=== PATIENT | male | born 1975 | race Caucasian/White ===

== ENCOUNTER 2017-03-25 08:21 | Emergency (ER) | payer SELFPAY ==
[2017-03-25 08:35] VITALS: BP 140/100
--- NOTE | 2017-03-25 09:01 | UC ---
Veena Dahl Thomas, scribed for Stella Enriquez MD on 03/25/17 at 0848 . General HPI - HPI Summary HPI Summary: The pt is a 41 y/o M presenting to [facility] requesting a refill of Atenolol 100mg daily. He recently moved from [place] in December. Pt states his PCP gave him, a 6 -month prescription. He says that [facility] will only allow one refill from another state, and he has not found a PCP yet. pt did fill the Rx on January ( bottle with pt) Pt without any complaints or concerns. He brings his bloodwork and PCP documentation from [facility] to the examination room.. He has taken half his dosage for the las 2-3 days. He states that he is on Atenolol for heart conditions that cause blackouts and flutters. In the past, he was prescribed Atenolol 50mg initially, but his dose has since increased. He recently became employed with [employer] 3 weeks ago. He is currently attempting to find insurance. His medication is $4 a bottle. He denies any current symptoms. He also takes a daily multivitamin. Reviewed of documentation from PCP. Pt had Rx 100mg Atenolol Jul,, December all documented. PMHx: syncope, HTN, COPD, histoplasmosis. PSHx: implanted loop recorder (still implanted), cholecystectomy, deviated septum. SHx: smoker (1/2 PPD, previously 2 PPD), weekend drinker, no illicit drugs. FHx: COPD. Patients medication reviewed this visit. - History of Current Complaint Stated Complaint: MED REFILL Time Seen by Provider: 03/25/17 08:24 Hx Obtained From: Patient Onset/Duration: Lasting Days - for the last ten days, he has been taking half of his prescribed dose, Still Present Timing: Constant Pain Intensity: 0 Aggravating: None Alleviating: None Associated Signs & Symptoms: Positive: Other - POS: med refill; NEG: any symptoms - Allergy/Home Medications Allergies/Adverse Reactions: Allergies Allergy/AdvReac Type Severity Reaction Status Date / Time Codeine Allergy Unknown Verified 03/25/17 08:37 Reaction Details Home Medications: Home Medications Atenolol [Tenormin 100 MG] 1 tab PO DAILY 03/25/17 [History Confirmed 03/25/17] PMH/Surg Hx/FS Hx/Imm Hx Previously Healthy: No Cardiovascular History: Hypertension, Other Other Cardiovascular History: "congenital heart condition", syncope Respiratory History: COPD - Surgical History Surgical History: Yes Surgery Procedure, Year, and Place: gallbladder, event monitor , hemorrhoid , deviated septum, lung biopsy, loop recorder - Family History Known Family History: Positive: Other - POS: COPD - Social History Occupation: Employed Part-time - [employer] Lives: With Family Alcohol Use: Weekly Substance Use Type: None Smoking Status (MU): Heavy Every Day Tobacco Smoker Type: Cigarettes Amount Used/How Often: 1/2 ppd Have You Smoked in the Last Year: Yes Review of Systems Constitutional: Other - POS: in need of med refill Skin: Negative Eyes: Negative ENT: Negative Respiratory: Negative Cardiovascular: Negative Gastrointestinal: Negative Genitourinary: Negative Motor: Negative Neurovascular: Negative Musculoskeletal: Negative Neurological: Negative Psychological: Negative All Other Systems Reviewed And Are Negative: Yes Physical Exam Triage Information Reviewed: Yes Appearance: Well-Appearing, No Pain Distress, Well-Nourished Vital Signs: Initial Vital Signs Temp 95.9 F 03/25/17 08:26 Pulse 76 03/25/17 08:26 Resp 18 03/25/17 08:26 BP 140/100 03/25/17 08:26 Pulse Ox 97 03/25/17 08:26 Vital Signs Reviewed: Yes Eye Exam: Normal ENT Exam: Normal Dental Exam: Normal Neck exam: Normal Neck: Positive: Supple, Nontender, No Lymphadenopathy Respiratory Exam: Normal Respiratory: Positive: Chest non-tender, Lungs clear, Normal breath sounds Cardiovascular Exam: Normal Cardiovascular: Positive: RRR, No Murmur, Pulses Normal Abdominal Exam: Normal Abdomen Description: Positive: Nontender, No Organomegaly, Soft Bowel Sounds: Positive: Present Musculoskeletal Exam: Normal Musculoskeletal: Positive: Strength Intact, ROM Intact Neurological Exam: Normal Neurological: Positive: Alert, Muscle Tone Normal Psychological Exam: Normal Psychological: Positive: Normal Response To Family Skin Exam: Normal Course/Dx - Course Course Of Treatment: The patient is a 41 y/o M presenting to [facility] in need of a Rx refill of Atenolol 100mg daily. PT with documentation from his previous PCP supporting ongoing Rx and intended 5 month refill. Today he was given 1 month prescription with a 1-month refill. Pt states he will be able to afford as not on urgent Rx list. Pt was instructed that no further prescriptions will likley be given at Urgent Care and that he needs to find a PCP for further refills. I gave him a brochure on how to use the [facility] [facility]. Encouraged hydration, decrease cigarette smoke. Pt comfortable and in agreement with plan - Differential Dx - Multi-Symptom Provider Diagnoses: medication refill Discharge - Discharge Plan Condition: Stable Disposition: ADMITTED TO [facility] Prescriptions: Atenolol [Tenormin 100 MG] 100 mg PO DAILY #30 tab Patient Education Materials: Medicine Refill (ED) Additional Instructions: - Stay well hydrated. Drink plenty of non-alcoholic, non-caffinated beverages - Work to decrease cigarette smoking - You were given a prescription for your Atenolol 100mg daily x 30 days and 1 refill. - It is VERY important that you establish with primary care provider - you have been given a brochure and contact information for the physician referral center - If you have any questions or concerns - it is recommended you go to the emergency department The documentation as recorded by the Veena garcia Thomas accurately reflects the service I personally performed and the decisions made by me, Stella Enriquez MD.
== END 2017-03-25 08:55 | disposition short-term general hospital (02) ==
LOC: UCEAST 08:21
DX: Z76.0 Encounter for issue of repeat prescription (principal); I10 Essential (primary) hypertension; J44.9 Chronic obstructive pulmonary disease, unspecified; Z88.5 Allergy status to narcotic agent; F17.210 Nicotine dependence, cigarettes, uncomplicated
CPT/HCPCS: 99202; G0463

== ENCOUNTER 2019-01-20 10:21 | Emergency (ER) | payer MEDICAID, OTHER ==
[2019-01-20] MEDS ORDERED: HYDROcodone/ACETAMIN 5-325 MG* 1 TAB PO ONE (10:32)
[2019-01-20] MEDS ORDERED: Lidocaine 2% EPI 1:200000 MPF*10-20 ML VIAL INJ ONE (10:33)
--- NOTE | 2019-01-20 10:34 | ED ---
GI/ HPI - HPI Summary HPI Summary: This patient is a 43 year old male presenting to [facility] with a chief complaint of rectal pain since 2 days ago. The patient had surgery treating a thrombosed hemorrhoid 5 years ago and states he thinks it has come back. He states he has taken ibuprofen and Preparation H without relief. The patient rates his pain 9/ 10 in severity. Pt denies any fever, chills, erythema of eyes, sore throat, CP, SOB, cough, abdominal pain, N/V, dysuria, hematuria, myalgia, edema, rash, or dizziness. - History of Current Complaint Chief Complaint: EDRectalPain Stated Complaint: ABD PAIN PER PT Hx Obtained From: Patient Onset/Duration: Started Days Ago Timing: Constant Severity: Severe Current Severity: Severe Pain Intensity: 9 Location of Pain: Rectal - Allergy/Home Medications Allergies/Adverse Reactions: Allergies Allergy/AdvReac Type Severity Reaction Status Date / Time codeine AdvReac Unknown Verified 01/20/19 10:23 Reaction Details PMH/Surg Hx/FS Hx/Imm Hx Endocrine/Hematology History: Denies: Hx Diabetes, Hx Thyroid Disease Cardiovascular History: Reports: Hx Hypertension Respiratory History: Reports: Hx Chronic Obstructive Pulmonary Disease (COPD) Denies: Hx Asthma GI History: Denies: Hx Ulcer - Surgical History Surgery Procedure, Year, and Place: gallbladder, event monitor , hemorrhoid , deviated septum, lung biopsy, loop recorder Infectious Disease History: No Infectious Disease History: Denies: Hx Hepatitis, Hx Human Immunodeficiency Virus (HIV), History Other Infectious Disease, Traveled Outside the [place] in Last 30 Days - Family History Known Family History: Positive: Other - POS: COPD - Social History Alcohol Use: Weekly Substance Use Type: Reports: None Smoking Status (MU): Former Smoker Type: Cigarettes Amount Used/How Often: 1/2 ppd Have You Smoked in the Last Year: Yes Review of Systems Negative: Fever, Chills Negative: Erythema Negative: Sore Throat Negative: Chest Pain Negative: Shortness Of Breath, Cough Positive: Other - Rectal Pain. Negative: Abdominal Pain, Vomiting, Nausea Negative: dysuria, hematuria Negative: Myalgia, Edema Negative: Rash Neurological: Other - Neg: Dizziness All Other Systems Reviewed And Are Negative: No Physical Exam - Summary Physical Exam Summary: Constitutional: Well-developed, Well-nourished, Alert. (-) Distressed Skin: Warm, Dry HENT: Normocephalic; Atraumatic Eyes: Conjunctiva normal Neck: Musculoskeletal ROM normal neck. (-) JVD, (-) Stridor, (-) Tracheal deviation Cardio: Rhythm regular, rate normal, Heart sounds normal; Intact distal pulses; The pedal pulses are 2+ and symmetric. Radial pulses are 2+ and symmetric. (-) Murmur Pulmonary/Chest wall: Effort normal. (-) Respiratory distress, (-) Wheezes, (-) Rales Abd: Soft, (-) tenderness, (-) Distension, (-) Guarding, (-) Rebound Musculoskeletal: (-) Edema Lymph: (-) Cervical adenopathy Neuro: Alert, Oriented x3 Psych: Mood and affect Normal Rectal:Purplish thrombosed external hemorrhoid at the 10 O'clock position. Triage Information Reviewed: Yes Vital Signs On Initial Exam: Initial Vitals Temp Pulse Resp BP Pulse Ox 97.7 F 79 18 124/92 97 01/20/19 10:23 01/20/19 10:23 01/20/19 10:23 01/20/19 10:23 01/20/19 10:23 Vital Signs Reviewed: Yes Diagnostics - Vital Signs Vital Signs Temp Pulse Resp BP Pulse Ox 01/20/19 10:23 97.7 F 79 18 124/92 97 - Laboratory Lab Statement: Any lab studies that have been ordered have been reviewed, and results considered in the medical decision making process. GIGU Course/Dx - Course Course Of Treatment: This patient is a 43 year old male presenting to [facility] with a chief complaint of rectal pain. Physical exam was remarkable for purplish thrombosed external hemorrhoid at the 10 O'Clock position. Incision and drainage procedure performed. PROCEDURE NOTE: PROCEDURE NAME: Incision and drainage of thrombosed external hemorrhoid. INDICATION: Thrombosed external hemorrhoid. PROCEDURALIST: Michael Mcneil M.D. DETAILS: Informed consent was obtained. Risks and benefits including bleeding and infection and pain were discussed and accepted by the patient. A surgical timeout occurred at the bedside with Jorge MENEZES. Total of 5 mL's of 2% lidocaine with epinephrine were injected locally, triangular incision with 11 blade was made. Utilized forceps to remove a significant amount of clot from the hemorrhoid. The hemorrhoid was evacuated, and nearly flat at the time of conclusion of the procedure. Mild oozing of blood from the site. Drainage is bloody without purulence. Patient will be discharged with a plan to follow up with surgery. This plan was discussed with the patient and he was agreeable with this plan. - Diagnoses Provider Diagnoses: Thrombosed external hemorrhoid Discharge - Sign-Out/Discharge Documenting (check all that apply): Patient Departure - Discharge Patient Received Moderate/Deep Sedation with Procedure: No - Discharge Plan Condition: Stable Disposition: HOME Patient Education Materials: Thrombosed Hemorrhoid (ED) Referrals: [facility] [Provider Group] - 3 Days Additional Instructions: Follow up with surgery on 3-5 days. Return to ED with any new or worsening symptoms. - Attestation Statements Document Initiated by Scribe: Yes Documenting Scribe: Carlos Cruz Provider For Whom Deborae is Documenting (Include Credential): Michael Mcneil MD Scribe Attestation: Carlos Dahl, scribed for Michael Mcneil MD on 01/20/19 at 1201. Status of Scribe Document: Ready
[2019-01-20 12:11] VITALS: BP 118/74
== END 2019-01-20 12:10 | disposition home or self-care (01) ==
LOC: ED 10:21
DX: K64.5 Perianal venous thrombosis (principal); I10 Essential (primary) hypertension; J44.9 Chronic obstructive pulmonary disease, unspecified; Z88.5 Allergy status to narcotic agent; Z87.891 Personal history of nicotine dependence
CPT/HCPCS: 99282